=== PATIENT | male | born 1930 | race Caucasian/White ===

== ENCOUNTER 2017-06-14 09:53 | Emergency (ER) | payer MEDICARE ==
[~2017-06-14] VITALS: Ht 180.3 cm; Wt 83.6 kg
[~2017-06-14 09:53] MED LIST: ASPI325T PO; ATOR10 PO; CO-Q 10 PO; CORE25TA PO; DIOV80TA2 PO; FISH1000 PO; LASI20TA PO; PRIL20TA2 PO; SAWPOW PO; SPIR25 PO; TAB-TAB PO; VITA500T10 PO
[2017-06-14 09:58] VITALS: BP 112/55; PULSE 18; RESP 20; TEMP 97.5; O2SAT 96
[2017-06-14] MEDS ORDERED: CORE25TA PO (10:42)
[2017-06-14] MEDS ORDERED: ASPI1TAB57 PO (10:42)
[2017-06-14] MEDS ORDERED: FURO40TA PO (10:42)
[2017-06-14] MEDS ORDERED: ATOR10TA15 PO (10:45)
[2017-06-14] MEDS ORDERED: DIOV80TA2 PO (10:53)
[2017-06-14] MEDS ORDERED: SPIR25TA PO (10:53)
[2017-06-14] MEDS ORDERED: CEPH-460 PO (11:12)
--- NOTE | 2017-06-14 11:12 | PD ---
HPI Chief Complaint: Skin Problem Time Seen by Provider: 11:01 Travel History International Travel<30 days: No Contact w/Intl Traveler<30days: No Traveled to known affect area: No History of Present Illness HPI Patient is a pleasant 86-year-old male presents emergency department for evaluation of mild swelling and erythema to his right hand. Patient thinks that maybe he got bit by a spider but he has never actually seen the spider. He has not had any drainage from any wound but just has a small sore spot on the dorsum of his hand. States his symptoms started a few days ago, states it was a lot worse last night and is actually getting better. No injury reported, does not remember any particular skin breakage. No history of diabetes or other immune compromise. States the pain is minimal, dorsum of left hand, not associated with any fevers nausea vomiting diarrhea constipation, slowly improving PFSH Past Medical History Hx Anticoagulant Therapy: Yes (ASA) Cancer: No Cardiac Catheterization: Yes (LAST IN 2007) Cardiovascular Problems: Yes (CABG 1999) High Cholesterol: Yes Coronary Artery Disease: Yes Diabetes: No Diminished Hearing: No Glaucoma: No Hepatitis: No Hiatal Hernia: No Hypertension: Yes Medical other: No Musculoskeletal: No Neurologic: No Respiratory: No Thyroid Disease: No Past Surgical History Abdominal Surgery: Yes (INGUINAL HERNIA REPAIR) Cardiac Surgery: Yes (CABG) Coronary Artery Bypass Graft: Yes (5 VESSELS IN 2000) Eye Surgery: Yes (CATARACT RIGHT EYE) Pacemaker: No Other Surgery: Yes Social History Alcohol Use: No Tobacco Use: No Substance Use: No Allergies-Medications (Allergen,Severity, Reaction): Coded Allergies: No Known Allergies (Verified Adverse Reaction, Unknown, 06/14/17) Reported Meds & Prescriptions Reported Meds & Active Scripts Active Doxycycline Hyclate 100 Mg Cap 100 Mg PO BID 7 Days Keflex (Cephalexin) 500 Mg Cap 500 Mg PO Q6H 7 Days Reported Spironolactone 25 Mg Tab 25 Mg PO DAILY Diovan Hct (Valsartan-Hydrochlorothiazide) 80-12.5 Mg Tab 1 Tab PO DAILY Atorvastatin (Atorvastatin Calcium) 10 Mg Tab 10 Mg PO HS Furosemide 40 Mg Tab 40 Mg PO DAILY Aspirin 81 (Aspirin) 81 Mg Tabdr 81 Mg PO DAILY Coreg (Carvedilol) 25 Mg Tab 25 Mg PO BID Review of Systems Except as stated in HPI: all other systems reviewed are Neg Physical Exam Narrative GENERAL: Well-nourished, well-developed patient. SKIN: Is a fair area of erythema on the dorsum of the right hand, does cross the MCP joints but not the PIP joints, also because of the wrist into the distal forearm. It only involves the dorsal aspect. The palmar aspect is clear , there is minimal boggy edema but no fluctuant area felt and no drainable abscess identified. There is a small breakdown of the skin which is superficial which patient has a Band-Aid over, appears to have good granulation tissue no discharge expressed. HEAD: Normocephalic. EYES: No scleral icterus. No injection or drainage. NECK: Supple, trachea midline. No JVD or lymphadenopathy. CARDIOVASCULAR: Regular rate and rhythm without murmurs, gallops, or rubs. RESPIRATORY: Breath sounds equal bilaterally. No accessory muscle use. GASTROINTESTINAL: Abdomen soft, non-tender, nondistended. MUSCULOSKELETAL: No cyanosis, or edema. Patient is full nontender range of motion of all joints of the hands bilaterally. Cap refill is brisk sensation is intact in all fingers of both hands peer BACK: Nontender without obvious deformity. No CVA tenderness. Data Data Last Documented VS Vital Signs Date Time Temp Pulse Resp B/P (MAP) Pulse Ox O2 Delivery O2 Flow Rate FiO2 06/14/17 10:49 20 06/14/17 09:58 97.5 18 112/55 (74) 96 Orders Orders Ed Discharge Order (06/14/17 11:14) [facility] Medical Decision Making Medical Screen Exam Complete: Yes Emergency Medical Condition: Yes Differential Diagnosis Cellulitis, abscess, sepsis highly unlikely, osteomyelitis unlikely. Narrative Course Patient room to the emergency department, appears to have uncomplicated cellulitis and I think at this point he would do well from a trial of outpatient antibiotic therapy. He is agreeable. Discussed at length with him return to ED criteria. Discussed other symptomatic management at home including rest ice and elevation. He is stable for discharge. Discussed follow -up with his primary care physician. Diagnosis Primary Impression: Cellulitis of hand, right Med/Other Pt SpecificInfo: Prescription(s) given Scripts Doxycycline Hyclate (Doxycycline Hyclate) 100 Mg Cap 100 MG PO BID for Infection for 7 Days, #14 CAP 0 Refills Prov: Max Ohara MD 06/14/17 Cephalexin (Keflex) 500 Mg Cap 500 MG PO Q6H for Infection for 7 Days, #28 CAP 0 Refills Prov: Max Ohara MD 06/14/17 Disposition: 01 DISCHARGE HOME Condition: Stable Max Ohara MD Jun 14, 2017 11:12
[2017-06-14] MEDS ORDERED: DOXY100C PO (11:14)
== END 2017-06-14 11:28 | disposition home or self-care (01) ==
LOC: PHED 09:53
DX: L03.113 Cellulitis of right upper limb (principal); E78.00 Pure hypercholesterolemia, unspecified; I25.10 Atherosclerotic heart disease of native coronary artery without angina pectoris; I10 Essential (primary) hypertension; Z79.82 Long term (current) use of aspirin; Z79.899 Other long term (current) drug therapy
CPT/HCPCS: 99283

== ENCOUNTER 2017-08-28 10:21 | Emergency (ER) | payer MEDICARE ==
[~2017-08-28] VITALS: Ht 182.9 cm; Wt 70.0 kg
[2017-08-28] VITALS (8 sets, daily range): BP systolic 108–136; BP diastolic 55–90; PULSE 66–100; RESP 16–18; TEMP 97.7–97.9; O2SAT 97–100
[~2017-08-28 10:21] MED LIST changes: +ASPI1TAB57 PO; -ASPI325T PO; -ATOR10 PO; +ATOR10TA15 PO; +CEPH-460 PO; -CO-Q 10 PO; +DOXY100C PO; -FISH1000 PO; +FURO40TA PO; -LASI20TA PO; -PRIL20TA2 PO; -SAWPOW PO; -SPIR25 PO; +SPIR25TA PO; -TAB-TAB PO; -VITA500T10 PO
[2017-08-28] MEDS ORDERED: SODIUM CHLOR 0.9% 1000 ML INJ 1,000 ML IV ONE (10:59)
[2017-08-28] MEDS ORDERED: SODIUM CHLORIDE 0.9% FLUSH 10 ML FLUSH IVF PRN (11:00)
--- NOTE | 2017-08-28 11:14 | PD ---
HPI Chief Complaint: Neuro Symptoms/ Deficits Time Seen by Provider: 10:49 Travel History International Travel<30 days: No Contact w/Intl Traveler<30days: No Traveled to known affect area: No History of Present Illness HPI This patient was eating breakfast at a restaurant. He had difficulty getting out of his chair. He felt lightheaded and weak. Some people helped him stand up and the lightheadedness and dizziness was worse when he was standing. Patient has a blood pressure that is on the low side. He does take 3 antihypertensives. He says his blood pressure is always low. He has no idea why he is on 2 diuretics. He did not have any chest pain or syncope or headache or speech slurring or muscle weakness. Duration was 5 minutes. Symptoms were exacerbated by standing up. He feels better while lying flat. PFSH Past Medical History Hx Anticoagulant Therapy: Yes (ASA) Cancer: No Cardiac Catheterization: Yes (LAST IN 2007) Cardiovascular Problems: Yes (CABG 1999) High Cholesterol: Yes Coronary Artery Disease: Yes Diabetes: No Diminished Hearing: No Glaucoma: No Hepatitis: No Hiatal Hernia: No Hypertension: Yes Musculoskeletal: No Neurologic: No Respiratory: No Thyroid Disease: No Influenza Vaccination: Yes Past Surgical History Abdominal Surgery: Yes (INGUINAL HERNIA REPAIR) Cardiac Surgery: Yes (CABG) Coronary Artery Bypass Graft: Yes (5 VESSELS IN 2000) Eye Surgery: Yes (CATARACT RIGHT EYE) Pacemaker: No Other Surgery: Yes Social History Alcohol Use: No Tobacco Use: No Substance Use: No Allergies-Medications (Allergen,Severity, Reaction): Coded Allergies: No Known Allergies (Verified Adverse Reaction, Unknown, 08/28/17) Reported Meds & Prescriptions Reported Meds & Active Scripts Active Reported Spironolactone 25 Mg Tab 25 Mg PO DAILY Diovan Hct (Valsartan-Hydrochlorothiazide) 80-12.5 Mg Tab 1 Tab PO DAILY Atorvastatin (Atorvastatin Calcium) 10 Mg Tab 10 Mg PO HS Furosemide 40 Mg Tab 40 Mg PO DAILY Aspirin 81 (Aspirin) 81 Mg Tabdr 81 Mg PO DAILY Coreg (Carvedilol) 25 Mg Tab 25 Mg PO BID Review of Systems General / Constitutional: No: Fever Eyes: No: Visual changes HENT: Positive: Lightheadedness, No: Headaches Cardiovascular: No: Chest Pain or Discomfort Respiratory: No: Shortness of Breath Gastrointestinal: No: Abdominal Pain Genitourinary: No: Dysuria Musculoskeletal: Positive: Weakness, Pain Skin: No Rash Neurologic: Positive: Weakness, Dizziness Psychiatric: No: Depression Endocrine: No: Polydipsia Hematologic/Lymphatic: No: Easy Bruising Physical Exam Narrative GENERAL: Well-nourished, well-developed patient in no apparent distress. SKIN: Focused skin assessment reveals no rash and nodules. Skin is Warm and dry. HEAD: Atraumatic. Normocephalic. EYES: Pupils equal and round. No scleral icterus. No injection or drainage. ENT: No nasal bleeding or discharge. Mucous membranes pink and moist. NECK: Trachea midline. No JVD. CARDIOVASCULAR: Regular rate and rhythm. No murmur appreciated. RESPIRATORY: No accessory muscle use. Clear to auscultation. Breath sounds equal bilaterally. GASTROINTESTINAL: Abdomen soft, non-tender, nondistended. Hepatic and splenic margins not palpable. MUSCULOSKELETAL: No obvious deformities. No clubbing. No cyanosis. No edema. Has bilateral knee surgical scars. NEUROLOGICAL: Awake and alert. No obvious cranial nerve deficits. Motor grossly within normal limits. Normal speech. No facial droop. Mental status normal PSYCHIATRIC: Depressed mood and flat affect; insight and judgment normal. Data Data Last Documented VS Vital Signs Date Time Temp Pulse Resp B/P (MAP) Pulse Ox O2 Delivery O2 Flow Rate FiO2 08/28/17 15:33 86 18 136/73 (94) 99 Room Air 08/28/17 14:57 97.9 Orders Orders Electrocardiogram (08/28/17 10:59) Basic Metabolic Panel (Bmp) (08/28/17 10:59) Complete Blood Count With Diff (08/28/17 10:59) Urinalysis - C+S If Indicated (08/28/17 10:59) Ecg Monitoring (08/28/17 10:59) Iv Access Insert/Monitor (08/28/17 10:59) Oximetry (08/28/17 10:59) Sodium Chloride 0.9% Flush (Ns Flush) (08/28/17 11:00) Sodium Chlor 0.9% 1000 Ml Inj (Ns 1000 M (08/28/17 10:59) Psych Screen (08/28/17 10:59) Drug Screen, Random Urine (08/28/17 10:59) Alcohol (Ethanol) (08/28/17 10:59) Labs Laboratory Tests Test 08/28/17 11:20 08/28/17 13:30 White Blood Count 4.4 TH/MM3 Red Blood Count 4.09 MIL/MM3 Hemoglobin 11.8 GM/DL Hematocrit 35.6 % Mean Corpuscular Volume 87.0 FL Mean Corpuscular Hemoglobin 28.8 PG Mean Corpuscular Hemoglobin Concent 33.1 % Red Cell Distribution Width 15.0 % Platelet Count 137 TH/MM3 Mean Platelet Volume 10.0 FL Neutrophils (%) (Auto) 49.7 % Lymphocytes (%) (Auto) 38.8 % Monocytes (%) (Auto) 7.8 % Eosinophils (%) (Auto) 2.8 % Basophils (%) (Auto) 0.9 % Neutrophils # (Auto) 2.2 TH/MM3 Lymphocytes # (Auto) 1.7 TH/MM3 Monocytes # (Auto) 0.3 TH/MM3 Eosinophils # (Auto) 0.1 TH/MM3 Basophils # (Auto) 0.0 TH/MM3 CBC Comment DIFF FINAL Differential Comment Blood Urea Nitrogen 24 MG/DL Creatinine 1.35 MG/DL Random Glucose 89 MG/DL Calcium Level 9.1 MG/DL Sodium Level 136 MEQ/L Potassium Level 3.9 MEQ/L Chloride Level 100 MEQ/L Carbon Dioxide Level 28.5 MEQ/L Anion Gap 8 MEQ/L Estimat Glomerular Filtration Rate 50 ML/MIN Ethyl Alcohol Level LESS THAN 3 MG/DL Urine Color Straw Urine Turbidity CLEAR Urine pH 6.0 Urine Specific [place] 1.004 Urine Protein NEG mg/dL Urine Glucose (UA) NEG mg/dL Urine Ketones NEG mg/dL Urine Occult Blood NEG Urine Nitrite NEG Urine Bilirubin NEG Urine Urobilinogen LESS THAN 2 mg/dL Urine Leukocyte Esterase NEG Urine WBC LESS THAN 1 /hpf Urine Squamous Epithelial Cells <1 /hpf Microscopic Urinalysis Comment CULT NOT INDICATED Urine Opiates Screen NEG Urine Barbiturates Screen NEG Urine Amphetamines Screen NEG Urine Benzodiazepines Screen NEG Urine Cocaine Screen NEG Urine Cannabinoids Screen NEG [facility] Medical Decision Making Medical Screen Exam Complete: Yes Emergency Medical Condition: Yes Medical Record Reviewed: Yes Differential Diagnosis Vasovagal episode, orthostatic hypotension, cardiac arrhythmia Narrative Course I have reviewed the patient's electronic medical record. Sounds like this patient had orthostatic induced hypotensive changes. IV placed and labs sent I reviewed his EKG I gave him a liter of normal saline IV Patient is depressed and has some concern for suicidal ideation. His significant other at bedside reports that he has been depressed for a long time and they both would like him to get psychiatric evaluation. I have ordered psychiatric screening. Psychiatry has evaluated him and he does have some depression and a Que issues. It seems like anxiety is his main problem. He has had a fall in the past and he is very anxious. He spends lots of his time in bed. He does have a walker at home. His significant other brought the walker in and I walked with him in the ER and he was very steady. But he is very nervous also. I do not think giving him sedating anxiety medicine is a good idea either. Going to call his family physician Dr. Alston to see if she can help him address the anxiety problems. I think he might benefit from a bit of physical therapy as well. CBC and metabolic studies revealed minor abnormalities but nothing emergent. His blood pressure is been very stable here. It is 130s after standing for a while. Stable for outpatient follow-up Diagnosis Primary Impression: Vasovagal episode Additional Impressions: Anxiety Lightheadedness Additional Instructions: Use walker at all times Call physician on Thursday for follow-up Ask about anxiety treatments and outpatient physical therapy Med/Other Pt SpecificInfo: Other Disposition: 01 DISCHARGE HOME Condition: Stable Gera Gibbs MD Aug 28, 2017 11:14
[2017-08-28 11:32] LABS: AUTOMATED NEUTROPHIL # 2.2 TH/MM3 (1.8-7.7); BASOPHIL % 0.9 % (0.0-2.0); EOSINOPHIL # 0.1 TH/MM3 (0-0.4); EOSINOPHIL % 2.8 % (0.0-4.0); HEMATOCRIT 35.6 % (39.0-51.0); HEMOGLOBIN 11.8 GM/DL (13.0-17.0); LYMPH % 38.8 % (9.0-44.0); LYMPHOCYTE # 1.7 TH/MM3 (1.0-4.8); MEAN CORPUSCULAR HEMOGLOBIN 28.8 PG (27.0-34.0); MEAN CORPUSCULAR HGB CONC 33.1 % (32.0-36.0); MONO % 7.8 % (0.0-8.0); MONOCYTE # 0.3 TH/MM3 (0-0.9); NEUT % 49.7 % (16.0-70.0); PLATELET COUNT 137 TH/MM3 (150-450); RED BLOOD COUNT 4.09 MIL/MM3 (4.50-5.90); WHITE BLOOD COUNT 4.4 TH/MM3 (4.0-11.0)
[2017-08-28 11:56] LABS: BLOOD UREA NITROGEN 24 MG/DL (7-18); CALCIUM 9.1 MG/DL (8.5-10.1); CHLORIDE 100 MEQ/L (98-107); CREATININE 1.35 MG/DL (0.60-1.30); GLOMERULAR FILTRATION RATE 50 ML/MIN (>89); GLUCOSE,RANDOM 89 MG/DL (74-106); SODIUM (NA) 136 MEQ/L (136-145)
[2017-08-28 11:57] LABS: BICARBONATE 28.5 MEQ/L (21.0-32.0)
--- NOTE | 2017-08-28 12:43 | EKG ---
Date Performed: 08/28/2017 Time Performed: 10:37:40 PTAGE: 87 years EKG: Sinus rhythm MARKED LEFT AXIS DEVIATION LEFT BUNDLE BRANCH BLOCK ABNORMAL ECG Since the PREVIOUS TRACING , no significant change noted PREVIOUS TRACING DOCTOR: Bandar Contreras Interpretating Date/Time 08/28/2017 12:41:02
[2017-08-28 14:13] LABS: BILIRUBIN, URINE NEG (NEG); BLOOD, URINE NEG (NEG); GLUCOSE,URINE NEG (NEG); KETONE, URINE NEG (NEG); NITRITE,URINE NEG (NEG); SQUAMOUS EPITHELIAL CELL URINE <1 /hpf (0-5); URINE COLOR Straw (YELLW/STRAW); URINE LEUKOCYTE ESTERASE NEG (NEG)
== END 2017-08-28 17:10 | disposition home or self-care (01) ==
LOC: NEPE 10:21
DX: R55 Syncope and collapse (principal); F41.9 Anxiety disorder, unspecified; E78.00 Pure hypercholesterolemia, unspecified; I10 Essential (primary) hypertension; I25.10 Atherosclerotic heart disease of native coronary artery without angina pectoris; Z79.899 Other long term (current) drug therapy
CPT/HCPCS: 80048; 80307; 81001; 85025; 93005; 96360; 99284; J7030